=== PATIENT | male | born 1995 | race Caucasian/White ===

== ENCOUNTER → 2016-09-05 | Outpatient (REF) | LOC: WSOH 11:25 | DX: Z02.89 Encounter for other administrative examinations (principal) ==

== ENCOUNTER 2018-06-22 13:00 | Outpatient (RCR) | payer OTHER | END 2018-07-04 14:01 | disposition home or self-care (01) | LOC: WSC 13:00 | DX: S46.011A Strain of muscle(s) and tendon(s) of the rotator cuff of right shoulder, initial encounter (principal); S43.001A Unspecified subluxation of right shoulder joint, initial encounter ==

== ENCOUNTER 2018-07-04 14:01 | Outpatient (RCR) | payer OTHER | END 2018-07-05 10:37 | disposition home or self-care (01) | LOC: WSC 14:01 | DX: S46.011D Strain of muscle(s) and tendon(s) of the rotator cuff of right shoulder, subsequent encounter (principal); S43.001D Unspecified subluxation of right shoulder joint, subsequent encounter ==